=== PATIENT | female | born 1950 | race Hispanic/Latino ===

== ENCOUNTER → 2018-02-11 | Outpatient (CLI) | payer MEDICARE | END | disposition home or self-care (01) | LOC: SHCH 10:13 | PROVIDERS: ATTEND Internal Medicine Cardiovascular Disease | DX: I51.7 Cardiomegaly (principal); I35.1 Nonrheumatic aortic (valve) insufficiency; I10 Essential (primary) hypertension; I45.10 Unspecified right bundle-branch block | CPT/HCPCS: 93306; 93975 ==

== ENCOUNTER 2018-10-19 08:24 | Observation (INO) | payer MEDICARE ==
[~2018-10-19] VITALS: Ht 165.1 cm; Wt 65.3 kg
[~2018-10-19 08:24] MED LIST: ACET-2123 PO; AMLO10TA6 PO; ASPI-555 PO; CARV6.25 PO; FERS325 PO; FLUT16H NASAL; FOLI1CAP2 PO; GLUC1CAP14 PO; IPRA4AER IH; LORA-705 PO; MULT-1250 PO; ROSU10TA27 PO; SITA25TA5 PO; SODI650T PO; TORS20TA4 PO; [UNRECOGNIZED DRUG - CODE] IJ
[2018-10-19] MEDS ORDERED: HYDRALAZINE HCL 20 MG/ML VIAL ONE (08:42)
[2018-10-19] MEDS ORDERED: NIFEDIPINE ER 30 MG TAB PO ONE (08:42)
[2018-10-19 08:48] LABS: BASOPHILS % (AUTO) 0.8 % (0.0-5.0); EOSINOPHILS % (AUTO) 2.9 % (0.0-8.0); HEMATOCRIT 32.8 % (36-48); LYMPHOCYTES % (AUTO) 15.2 % (21.0-51.0); MEAN CORPUSCULAR HEMOGLOBIN 28.9 pg (27.0-33.0); MEAN CORPUSCULAR HGB CONC 32.6 g/dL (32.0-36.0); MEAN CORPUSCULAR VOLUME 88.9 fL (79-99); MONOCYTES % (AUTO) 4.1 % (3.0-13.0); NUCLEATED RED BLOOD CELLS 0.1 % (0.0-0.19); PLATELET COUNT (AUTO) 146 K/uL (130-400); RED BLOOD CELL COUNT(AUTO) 3.69 MIL/uL (4.00-5.50); RED CELL DISTRIBUTION WIDTH 16.9 % (11.0-15.5); WHITE BLOOD COUNT (AUTO) 8.3 K/uL (4.8-10.8)
[2018-10-19 08:58] LABS: CREATININE 6.6 mg/dL (0.5-1.5); POTASSIUM 4.1 mmol/L (3.5-5.1)
[2018-10-19 09:05] LABS: BILIRUBIN,TOTAL 0.4 mg/dL (0.2-1.0); INR 0.95 (0.85-1.15); PARTIAL THROMBOPLASTIN TIME 25.8 SEC (26.3-35.5); TOTAL PROTEIN, SERUM 7.9 g/dL (6.0-8.3)
[2018-10-19] MEDS ORDERED: LORAZEPAM 2 MG/ML 1 ML VIAL ONE (09:20)
[2018-10-19 11:24] VITALS: BP 194/75
[2018-10-19] MEDS ORDERED: LOSA100T20 PO (11:44)
[2018-10-19] MEDS ORDERED: CALC667C10 PO (11:44)
[2018-10-19] MEDS ORDERED: LOSA25TA16 PO (14:08)
[2018-10-19] MEDS ORDERED: HYDRALAZINE HCL 20 MG/ML VIAL IV PRN (14:30)
[2018-10-19] MEDS: IPRATROPIUM/ALBUTEROL SULFATE 3 ML SOLUTION IH SCH ×2 (15:12→21:23)
[2018-10-19] MEDS ORDERED: ALBUMIN (HUMAN) 25% 100 ML IV PRN (15:15)
[2018-10-19] MEDS ORDERED: HEPARIN SODIUM 5000UNIT/ML 1ML VIAL IJ PRN (15:15)
[2018-10-19] MEDS ORDERED: 0.9% SODIUM CHLORIDE 250 ML IV BAG IV PRN (15:15)
[2018-10-19 16:00] VITALS: BP 129/70
[2018-10-19] MEDS: INSULIN HUMULIN R 100 UNIT/ML 3ML SQ SCH ×2 (16:30→20:15)
[2018-10-19] MEDS: CALCIUM ACETATE 667 MG CAPSULE PO SCH (17:28)
[2018-10-19] MEDS: SODIUM CHLORIDE 0.9% 1000ML 1,000 ML IV PRN (17:32)
[2018-10-19 19:32] VITALS: BP 130/57
[2018-10-19] MEDS: CARVEDILOL 6.25 MG TABLET PO SCH (20:06)
[2018-10-19 23:49] VITALS: BP 141/60
[2018-10-20 03:46] LABS: HEMATOCRIT 27.7 % (36-48); MEAN CORPUSCULAR HEMOGLOBIN 29.2 pg (27.0-33.0); MEAN CORPUSCULAR HGB CONC 33.2 g/dL (32.0-36.0); PLATELET COUNT (AUTO) 166 K/uL (130-400); RED BLOOD CELL COUNT(AUTO) 3.14 MIL/uL (4.00-5.50); RED CELL DISTRIBUTION WIDTH 17.2 % (11.0-15.5); WHITE BLOOD COUNT (AUTO) 7.2 K/uL (4.8-10.8)
[2018-10-20 03:52] VITALS: BP 122/61
[2018-10-20 04:01] LABS: CREATININE 4.6 mg/dL (0.5-1.5); MAGNESIUM 1.9 mg/dL (1.80-2.40); PHOSPHORUS 4.4 mg/dL (2.5-4.9); URIC ACID 3.5 mg/dL (2.6-7.2)
[2018-10-20] MEDS: IPRATROPIUM/ALBUTEROL SULFATE 3 ML SOLUTION IH SCH ×2 (05:57→22:09)
[2018-10-20] MEDS: SODIUM CHLORIDE 0.9% 1000ML 1,000 ML IV PRN (06:46)
[2018-10-20] MEDS: INSULIN HUMULIN R 100 UNIT/ML 3ML SQ SCH ×4 (06:47→20:47)
[2018-10-20 07:00] VITALS: BP 167/71
[2018-10-20] MEDS: CALCIUM ACETATE 667 MG CAPSULE PO SCH ×3 (07:30→17:58)
[2018-10-20] MEDS: LINAGLIPTIN 5 MG TABLET PO SCH (08:53)
[2018-10-20] MEDS: FOLIC ACID/VITAMIN B COMP W-C 1 MG CAPSULE PO SCH (08:53)
[2018-10-20] MEDS: ASPIRIN 81MG TAB.CHEW PO SCH (08:54)
[2018-10-20] MEDS: AMLODIPINE BESYLATE 5 MG TAB PO SCH (08:54)
[2018-10-20] MEDS: CARVEDILOL 6.25 MG TABLET PO SCH ×2 (08:54→20:25)
[2018-10-20 11:00] VITALS: BP 148/58
[2018-10-20 16:00] VITALS: BP 149/64
[2018-10-20 18:59] VITALS: BP 151/69
[2018-10-20] MEDS ORDERED: LOSARTAN 50 MG TABLET PO SCH (21:00)
[2018-10-20 23:44] VITALS: BP 125/54
[2018-10-21 03:48] VITALS: BP 152/61
[2018-10-21 04:03] LABS: HEMATOCRIT 29.1 % (36-48); MEAN CORPUSCULAR HEMOGLOBIN 28.6 pg (27.0-33.0); MEAN CORPUSCULAR HGB CONC 32.4 g/dL (32.0-36.0); MEAN CORPUSCULAR VOLUME 88.3 fL (79-99); PLATELET COUNT (AUTO) 156 K/uL (130-400); RED BLOOD CELL COUNT(AUTO) 3.29 MIL/uL (4.00-5.50); RED CELL DISTRIBUTION WIDTH 15.8 % (11.0-15.5); WHITE BLOOD COUNT (AUTO) 7.7 K/uL (4.8-10.8)
[2018-10-21 04:11] LABS: CREATININE 6.5 mg/dL (0.5-1.5); POTASSIUM 4.6 mmol/L (3.5-5.1)
[2018-10-21] MEDS: IPRATROPIUM/ALBUTEROL SULFATE 3 ML SOLUTION IH SCH (06:10)
[2018-10-21] MEDS: INSULIN HUMULIN R 100 UNIT/ML 3ML SQ SCH ×2 (06:12→11:30)
[2018-10-21 07:40] VITALS: BP 153/62
[2018-10-21] MEDS: FOLIC ACID/VITAMIN B COMP W-C 1 MG CAPSULE PO SCH (08:42)
[2018-10-21] MEDS: CALCIUM ACETATE 667 MG CAPSULE PO SCH ×2 (08:43→12:53)
[2018-10-21] MEDS: CARVEDILOL 6.25 MG TABLET PO SCH (08:43)
[2018-10-21] MEDS: AMLODIPINE BESYLATE 5 MG TAB PO SCH (08:43)
[2018-10-21] MEDS: LINAGLIPTIN 5 MG TABLET PO SCH (08:43)
[2018-10-21] MEDS: ASPIRIN 81MG TAB.CHEW PO SCH (08:43)
[2018-10-21 11:47] VITALS: BP 157/58
[2018-10-21 16:48] VITALS: BP 144/67
== END 2018-10-21 18:54 | disposition home or self-care (01) ==
LOC: EDH 08:24 → EDHIP 09:50 → 2DH 10:53
PROVIDERS: ADMIT Internal Medicine; ATTEND Internal Medicine
DX: I12.0 Hypertensive chronic kidney disease with stage 5 chronic kidney disease or end stage renal disease (principal); N18.6 End stage renal disease; E11.22 Type 2 diabetes mellitus with diabetic chronic kidney disease; J81.1 Chronic pulmonary edema; Z99.2 Dependence on renal dialysis; I16.1 Hypertensive emergency; J96.00 Acute respiratory failure, unspecified whether with hypoxia or hypercapnia; E11.51 Type 2 diabetes mellitus with diabetic peripheral angiopathy without gangrene; D64.9 Anemia, unspecified; E87.70 Fluid overload, unspecified; I25.10 Atherosclerotic heart disease of native coronary artery without angina pectoris; M19.90 Unspecified osteoarthritis, unspecified site; Z91.19 Patient's noncompliance with other medical treatment and regimen; Z96.659 Presence of unspecified artificial knee joint; Z88.5 Allergy status to narcotic agent
CPT/HCPCS: G0257 ×101; 36415; 71045; 80048; 80053; 82550; 82948; 83735; 83880; 84100; 84484; 84550; 85025; 85027; 85610; 85730; 90935; 93005; 93306; 94640; 94660; 96372; 99291; G0378; J0360; J1644; J1815; J2060; J7030

== ENCOUNTER → 2018-12-16 | Outpatient (CLI) | payer MEDICARE ==
[~2018-12-16] MED LIST changes: -ACET-2123 PO; -AMLO10TA6 PO; +CALC667C10 PO; -FERS325 PO; -FLUT16H NASAL; -GLUC1CAP14 PO; -LORA-705 PO; +LOSA100T58 PO; -MULT-1250 PO; -ROSU10TA27 PO; -SODI650T PO; -TORS20TA4 PO; -[UNRECOGNIZED DRUG - CODE] IJ
== END | disposition home or self-care (01) ==
LOC: SHCH 12:52
PROVIDERS: ATTEND Internal Medicine Cardiovascular Disease
DX: I65.23 Occlusion and stenosis of bilateral carotid arteries (principal)
CPT/HCPCS: 93880

== ENCOUNTER → 2018-12-20 | Outpatient (CLI) | payer MEDICARE | END | disposition home or self-care (01) | LOC: SHCH 13:00 | PROVIDERS: ATTEND Internal Medicine Cardiovascular Disease | DX: I08.3 Combined rheumatic disorders of mitral, aortic and tricuspid valves (principal); J90 Pleural effusion, not elsewhere classified | CPT/HCPCS: 93306 ==

== ENCOUNTER → 2018-12-23 | Outpatient (CLI) | payer MEDICARE ==
[~2018-12-23] VITALS: Ht 162.6 cm; Wt 64.0 kg
[~2018-12-23] MED LIST changes: +REGADENOSON 0.4 MG/5 ML PF SYG IVP SCH
== END | disposition home or self-care (01) ==
LOC: SHCH 07:37
PROVIDERS: ATTEND Internal Medicine Cardiovascular Disease
DX: I25.9 Chronic ischemic heart disease, unspecified (principal); I10 Essential (primary) hypertension
CPT/HCPCS: 78452; 93017; 96374; A9500 ×2; J2785

== ENCOUNTER 2019-01-24 05:42 | Observation (INO) | payer MEDICARE ==
[2019-01-22 08:39] VITALS: BP 160/80
[2019-01-22 08:53] LABS: BASOPHILS % (AUTO) 0.7 % (0.0-5.0); EOSINOPHILS % (AUTO) 2.6 % (0.0-8.0); HEMATOCRIT 35.9 % (36-48); LYMPHOCYTES % (AUTO) 13.1 % (21.0-51.0); MEAN CORPUSCULAR HEMOGLOBIN 29.6 pg (27.0-33.0); MEAN CORPUSCULAR VOLUME 92.5 fL (79-99); MONOCYTES % (AUTO) 6.9 % (3.0-13.0); NEUTROPHILS % (AUTO) 76.7 % (40.0-77.0); NUCLEATED RED BLOOD CELLS 0.1 % (0.0-0.19); PLATELET COUNT (AUTO) 162 K/uL (130-400); RED BLOOD CELL COUNT(AUTO) 3.88 MIL/uL (4.00-5.50); RED CELL DISTRIBUTION WIDTH 19.9 % (11.0-15.5); WHITE BLOOD COUNT (AUTO) 7.9 K/uL (4.8-10.8)
[2019-01-22 08:56] LABS: BILIRUBIN,URINE Negative (NEGATIVE); COLOR,URINE Yellow (YELLOW); GLUCOSE, URINE (UA) 500 mg/dL (NEGATIVE); KETONES,URINE Negative (NEGATIVE); LEUKOCYTE ESTERASE ,URINE Trace (NEGATIVE); NITRATE,URINE Negative (NEGATIVE); OCCULT BLOOD,URINE Small (NEGATIVE); PH,URINE >=9.0 (5.0-8.0); PROTEIN,URINE >=1000 (NEGATIVE); UROBILINOGEN,URINE 0.2 mg/dL (0.2-1.0)
[2019-01-22 08:59] LABS: CREATININE 6.7 mg/dL (0.5-1.5); POTASSIUM 4.4 mmol/L (3.5-5.1)
[2019-01-22 09:05] LABS: INR 1.03 (0.85-1.15); PARTIAL THROMBOPLASTIN TIME 26.1 SEC (26.3-35.5); PROTHROMBIN TIME 10.8 SEC (9.6-11.6)
[2019-01-22 09:08] LABS: APPEARANCE,URINE CLEAR (CLEAR)
[2019-01-22 09:09] LABS: BACTERIA,URINE Rare /HPF (None Seen); RBC,URINE 0-1 /HPF (0-1); SQUAMOUS EPITHELIAL CELL,UR Rare /HPF (0-2); WBC,URINE 0-1 /HPF (0-1)
--- NOTE | 2019-01-23 11:34 | NUR ---
NOTE REPORTED UA AND CHEST XRAY, TO NATAN DRAPER , NO FURTHER ORDERS GIVEN.
[~2019-01-24] VITALS: Ht 162.6 cm; Wt 64.1 kg
[2019-01-24] VITALS (28 sets, daily range): BP systolic 124–174; BP diastolic 48–83
[~2019-01-24 05:42] MED LIST changes: +AMLO10TA7 PO; +CHOL100040 PO; -IPRA4AER IH; -REGADENOSON 0.4 MG/5 ML PF SYG IVP SCH; +SODIUM CHLORIDE 0.9% 500ML 500 ML IV SCH; +vitamin e PO
[2019-01-24] MEDS ORDERED: IOHEXOL-350 50ML VIAL IV ONE (07:19)
[2019-01-24] MEDS ORDERED: SODIUM BICARB 50MEQ 50ML VIAL ONE (07:19)
[2019-01-24] MEDS ORDERED: HEPARIN SODIUM 1000UNIT/ML 10ML VIAL ONE (07:19)
[2019-01-24] MEDS ORDERED: LIDOCAINE HCL 2% 20ML ONE (07:19)
[2019-01-24] MEDS ORDERED: IOHEXOL 350 MG/ML 100ML INFUS..BTL IV ONE (07:19)
[2019-01-24] MEDS ORDERED: NITROGLYCERIN 5 MG/ML 10 ML VIAL IV ONE (07:19)
[2019-01-24] MEDS ORDERED: SODIUM CHLORIDE 0.9% 1000ML 1,000 ML IV ONE (07:24)
[2019-01-24] MEDS ORDERED: MIDAZOLAM HCL 1 MG/ML 2ML VIAL ONE (07:38)
[2019-01-24] MEDS ORDERED: MEPERIDINE-PF 25 MG/ML SYG ONE (07:38)
[2019-01-24] MEDS ORDERED: IPRA4AER IH (07:48)
[2019-01-24] MEDS ORDERED: HYDRALAZINE HCL 20 MG/ML VIAL ONE (07:50)
[2019-01-24] MEDS ORDERED: GLUCAGON 1MG KIT 1 MG ML IM PRN (08:15)
[2019-01-24] MEDS ORDERED: DEXTROSE 50%-WATER 50 ML DISP.SYRIN IV PRN (08:15)
[2019-01-24 09:41] LABS: CHOLESTEROL 100 mg/dL (<200); HDL CHOLESTEROL 45 mg/dL (35-85); LDL DIRECT 49 mg/dL (0-99); TRIGLYCERIDES 59 mg/dL (30-200)
[2019-01-24] MEDS ORDERED: NITROGLYCERIN 0.4 MG SL TAB SL ONE (10:35)
[2019-01-24] MEDS: INSULIN HUMULIN R 100 UNIT/ML 3ML SQ SCH ×3 (11:30→21:00)
[2019-01-24 11:40] LABS: CREATINE KINASE, TOTAL 104 U/L (21-232); MYOGLOBIN 265 ng/mL (10-92); TROPONIN I < 0.04 ng/mL (0.00-0.06)
[2019-01-24] MEDS ORDERED: NITROGLYCERIN 0.4 MG SL TAB SL PRN (15:00)
--- NOTE | 2019-01-24 15:05 | NUR ---
Patient was C/o Chest pain, sternal, 3/, does not radiate. Patient states it is not as bad as earlier today. SL NTG given at 1500 and patient's pain was relieved within 5 minutes. Patient's HOB is up 20degrees, no sign of bleeding to right femoral site. Will continue to monitor patient's condition.
[2019-01-24] MEDS ORDERED: PNEUMOCOCCAL VACCINE POLYVALENT 0.5 ML/VIAL [PPV] IM SCH (16:00)
--- NOTE | 2019-01-24 16:05 | NUR ---
Dr Collins updated by phone, ordered to let patient have dinner tray.
--- NOTE | 2019-01-25 01:38 | NUR ---
PT HAS NOT OFFERED ANY COMPLAINTS OF CHEST PAIN, HAS BEEN SLEEPING.
[2019-01-25 03:46] LABS: BASOPHILS % (AUTO) 0.7 % (0.0-5.0); EOSINOPHILS % (AUTO) 3.3 % (0.0-8.0); HEMATOCRIT 35.4 % (36-48); MEAN CORPUSCULAR HEMOGLOBIN 29.5 pg (27.0-33.0); MEAN CORPUSCULAR HGB CONC 32.4 g/dL (32.0-36.0); MEAN CORPUSCULAR VOLUME 91.2 fL (79-99); NUCLEATED RED BLOOD CELLS 0.1 % (0.0-0.19); PLATELET COUNT (AUTO) 160 K/uL (130-400); RED BLOOD CELL COUNT(AUTO) 3.89 MIL/uL (4.00-5.50); RED CELL DISTRIBUTION WIDTH 19.4 % (11.0-15.5); WHITE BLOOD COUNT (AUTO) 7.4 K/uL (4.8-10.8)
[2019-01-25 03:58] VITALS: BP 148/71
[2019-01-25 04:07] LABS: ALANINE AMINOTRANSFERASE 18 U/L (12-78); ALBUMIN 2.9 g/dL (3.5-5.0); ASPARTATE AMINOTRANSFERASE 17 U/L (10-37); BILIRUBIN,TOTAL 0.4 mg/dL (0.2-1.0); CARBON DIOXIDE 26 mmol/L (21-32); CHLORIDE 99 mmol/L (101-111); CREATINE KINASE, TOTAL 61 U/L (21-232); CREATININE 7.5 mg/dL (0.5-1.5); GLOMERULAR FILTR. RATE CALC 6 mL/min (>60); GLUCOSE,RANDOM 97 mg/dL (70-105); MYOGLOBIN 211 ng/mL (10-92); POTASSIUM 4.3 mmol/L (3.5-5.1); SODIUM SERUM 138 mmol/L (136-145); TOTAL PROTEIN, SERUM 7.1 g/dL (6.0-8.3); TROPONIN I < 0.04 ng/mL (0.00-0.06); UREA NITROGEN, BLOOD 65 mg/dL (7-18)
--- NOTE | 2019-01-25 05:28 | NUR ---
DIALYSIS STAFF HAVE BEEN ADVISED OF PT'S NEED FOR DIALYSIS ON SUNDAY DUE TO PT'S DIALYSIS DAYS ARE SUNDAY, SUNDAY AND SUNDAY.
[2019-01-25] MEDS: INSULIN HUMULIN R 100 UNIT/ML 3ML SQ SCH ×4 (05:29→21:00)
--- NOTE | 2019-01-25 06:00 | NUR ---
PT WAS ABLE TO AMBULATE TO BATHROOM WITHOUT ANY PROBLEMS. NO FURTHER COMPLAINTS OF CHEST PAIN. SLEEP MOST OF THE NIGHT.
[2019-01-25 07:20] VITALS: BP 171/62
[2019-01-25] MEDS ORDERED: PNEUMOCOCCAL VACCINE POLYVALENT 0.5 ML/VIAL [PPV] ONE (08:29)
[2019-01-25] MEDS ORDERED: ASPIRIN 81 MG EC TAB PO SCH (09:00)
[2019-01-25] MEDS ORDERED: ISOSORBIDE MONO 30MG TAB SR PO SCH (09:00)
--- NOTE | 2019-01-25 10:30 | NUR ---
Dr Collins came in to see patient. Discussed her situation and options with patient and Brother. Patient verbalized wanting to only do surgery as a last resort, Dr Collins agreed. Dr Collins states no need for patient to follow up in clinic at this time.
[2019-01-25 11:06] VITALS: BP 176/63
[2019-01-25 16:30] VITALS: BP 176/66
[2019-01-25] MEDS ORDERED: SODIUM CHLORIDE 0.9% 1000ML 1,000 ML IV PRN (18:15)
[2019-01-25] MEDS ORDERED: NITROGLYCERIN 0.4 MG SL TAB SL PRN (18:15)
[2019-01-25] MEDS ORDERED: HEPARIN SODIUM 5000UNIT/ML 1ML VIAL IJ PRN ×2 (18:15)
[2019-01-25] MEDS ORDERED: ACETAMINOPHEN 325 MG TAB PO PRN (18:15)
[2019-01-25] MEDS ORDERED: 0.9% SODIUM CHLORIDE 1000 ML IV BAG IV PRN (18:15)
[2019-01-25] MEDS ORDERED: LIDOCAINE HCL-MPF 1% 2ML VIAL IJ PRN (18:15)
[2019-01-25 19:36] VITALS: BP 184/74
--- NOTE | 2019-01-25 20:00 | NUR ---
ASSESSMENT NOTE AAOX3 SITTING UP IN BED BREATHING REGULAR AND UNLABORED ON ROOM AIR. ASSESSMENT COMPLETED. DENIES PAIN. DENIES CHEST PAIN. PLAN OF CARE DISCUSSED WITH PATIENT. PATIENT DIALYSIS IN PROGRESS. REINFORCED SAFETY INSTRUCTION. PENDING DISCHARGE POST HEMODIALYSIS. NO ACUTE SIGNS OR SYMPTOMS OF DISTRESS NOTED. CALL LIGHT IN REACH
[2019-01-25] MEDS ORDERED: LOSARTAN 100 MG TABLET PO SCH (21:00)
[2019-01-25] MEDS ORDERED: AMLODIPINE BESYLATE 5 MG TAB PO SCH (21:00)
[2019-01-25] MEDS ORDERED: ATORVASTATIN CALCIUM 40 MG TABLET PO SCH (21:00)
--- NOTE | 2019-01-25 22:30 | NUR ---
DISCHARGE INSTRUCTION DISCHARGE INFORMATION REVIEWED WITH PATIENT. EDUCATED ON HOME CARE, FOLLOW UP INSTRUCTION, AND NEW MEDICATIONS USING TEACH BACK. REVIEWED FOLLOW UP APPOINTMENT DATES WITH PATIENT.
--- NOTE | 2019-01-25 23:00 | NUR ---
DISCHARGE PATIENT DRESSED AND BELONGINGS GATHERED. PATIENT HAD NO ADDITIONAL QUESTIONS. DISCHARGE PACKET WITH PATIENT. VITAL SIGNS OBTAINED. IV REMOVED AND PATIENT TRANSFERRED TO PRIVATE VEHICLE VIA WHEELCHAIR. DENIES CHEST PAIN. NO ACUTE SIGNS OR SYMPTOMS OF DISTRESS NOTED.
== END 2019-01-25 22:55 | disposition home or self-care (01) ==
LOC: DAH 05:42 → DAHIP 05:43 → 2BH 12:06
PROVIDERS: ADMIT Internal Medicine Critical Care Medicine; ATTEND Internal Medicine Critical Care Medicine
DX: I25.119 Atherosclerotic heart disease of native coronary artery with unspecified angina pectoris (principal); I12.0 Hypertensive chronic kidney disease with stage 5 chronic kidney disease or end stage renal disease; N18.6 End stage renal disease; D64.9 Anemia, unspecified; E11.21 Type 2 diabetes mellitus with diabetic nephropathy; E11.22 Type 2 diabetes mellitus with diabetic chronic kidney disease; E11.51 Type 2 diabetes mellitus with diabetic peripheral angiopathy without gangrene; E78.5 Hyperlipidemia, unspecified; G89.29 Other chronic pain; I42.9 Cardiomyopathy, unspecified; I45.2 Bifascicular block; K21.9 Gastro-esophageal reflux disease without esophagitis; M19.90 Unspecified osteoarthritis, unspecified site; Z95.1 Presence of aortocoronary bypass graft; Z99.2 Dependence on renal dialysis; Z79.899 Other long term (current) drug therapy; Z23 Encounter for immunization
CPT/HCPCS: 36415 ×3; 71045; 80048; 80053; 80061; 81001; 82550 ×2; 82948 ×8; 83874 ×2; 84484 ×2; 85025 ×2; 85610; 85730; 90732; 93005 ×2; 93458; A4606; C1760 ×2; C1894; G0009; G0378 ×41; J0360; J1644 ×2; J2175; J2250; J3490 ×3; J7030 ×2; Q9965; Q9967 ×2; 90935; 99156; 99157; G0257

== ENCOUNTER 2019-09-29 04:15 | Inpatient (IN) | payer MEDICARE ==
[~2019-09-29] VITALS: Ht 162.6 cm; Wt 68.4 kg
[~2019-09-29 04:15] MED LIST changes: -CARV6.25 PO; +IPRA4AER IH; -SODIUM CHLORIDE 0.9% 500ML 500 ML IV SCH
[2019-09-29] MEDS ORDERED: NITROGLYCERIN 1GM/1 INCH PACKET TD ONE (04:46)
[2019-09-29] MEDS ORDERED: IPRATROPIUM/ALBUTEROL SULFATE 3 ML SOLUTION IH ONE ×2 (04:48→11:13)
[2019-09-29] MEDS ORDERED: FUROSEMIDE 10 MG/ML 4ML VIAL ONE (04:49)
[2019-09-29] MEDS ORDERED: FUROSEMIDE 10 MG/ML 2ML VIAL ONE (04:49)
[2019-09-29 04:50] LABS: BASOPHILS % (AUTO) 0.9 % (0.0-5.0); EOSINOPHILS % (AUTO) 3.3 % (0.0-8.0); HEMATOCRIT 37.2 % (36-48); LYMPHOCYTES % (AUTO) 10.4 % (21.0-51.0); MEAN CORPUSCULAR HEMOGLOBIN 30.9 pg (27.0-33.0); MEAN CORPUSCULAR HGB CONC 32.9 g/dL (32.0-36.0); MEAN CORPUSCULAR VOLUME 93.9 fL (79-99); MONOCYTES % (AUTO) 4.2 % (3.0-13.0); NEUTROPHILS % (AUTO) 81.2 % (40.0-77.0); NUCLEATED RED BLOOD CELLS 0.1 % (0.0-0.19); RED BLOOD CELL COUNT(AUTO) 3.96 MIL/uL (4.00-5.50); RED CELL DISTRIBUTION WIDTH 18.5 % (11.0-15.5); WHITE BLOOD COUNT (AUTO) 8.6 K/uL (4.8-10.8)
[2019-09-29 04:54] LABS: ABG BASE EXCESS -4.1 mmol/L (-2.0-3.0); ABG HCO3 20.6 mmol/L (21.0-28.0); ABG OXYGEN SATURATION 62.1 % (95.0-99.0); ABG PCO2 37 mmHg (32-45)
[2019-09-29 04:58] LABS: CREATININE 7.7 mg/dL (0.5-1.5); POTASSIUM 5.2 mmol/L (3.5-5.1)
[2019-09-29 04:59] LABS: INR 1.02 (0.85-1.15); PARTIAL THROMBOPLASTIN TIME 26.4 SEC (26.3-35.5); PROTHROMBIN TIME 10.7 SEC (9.6-11.6)
[2019-09-29 05:03] LABS: ALBUMIN 3.9 g/dL (3.5-5.0); BILIRUBIN,TOTAL 0.8 mg/dL (0.2-1.0)
[2019-09-29 05:09] LABS: B-TYPE NATRIURETIC PEPTIDE 1980 pg/mL (0-100)
[2019-09-29 05:16] LABS: PLATELET COUNT (AUTO) 168 K/uL (130-400)
[2019-09-29] MEDS ORDERED: METOPROLOL TARTRATE 1 MG/ML 5ML VIAL IV ONE (05:41)
[2019-09-29] MEDS ORDERED: NITROGLYCERIN 50 MG/D5% WATER 250 BOT IV PRN (06:30)
[2019-09-29] MEDS ORDERED: ONDANSETRON HCL 4 MG/2 ML VIAL IVP PRN (06:30)
--- NOTE | 2019-09-29 07:00 | NUR ---
SMOKED 1PK/WEEK Addendum: 09/29/19 at 0818 by HOMAR ZUÑIGA RT Amended: Links added.
[2019-09-29] MEDS ORDERED: SODIUM CHLORIDE 0.9% 1000ML 1,000 ML IV PRN (08:30)
[2019-09-29] MEDS ORDERED: 0.9% SODIUM CHLORIDE 1000 ML IV BAG IV PRN (08:30)
[2019-09-29] MEDS ORDERED: HEPARIN SODIUM 5000UNIT/ML 1ML VIAL IJ PRN ×2 (08:30)
[2019-09-29] MEDS ORDERED: ASPIRIN 81MG TAB.CHEW PO SCH (09:00)
[2019-09-29] MEDS: FAMOTIDINE/PF 20 MG/2 ML VIAL IV SCH (09:00)
[2019-09-29 09:13] LABS: CREATINE KINASE, TOTAL 120 U/L (21-232); MYOGLOBIN 245 ng/mL (10-92); TROPONIN I < 0.04 ng/mL (0.00-0.06)
[2019-09-29] MEDS ORDERED: HEPARIN SODIUM 5000UNIT/ML 1ML VIAL ONE ×2 (10:22→10:23)
[2019-09-29] MEDS: IPRATROPIUM/ALBUTEROL SULFATE 3 ML SOLUTION IH PRN (11:17)
[2019-09-29] MEDS ORDERED: INSULIN R NPO SSI SQ SCH (12:00)
--- NOTE | 2019-09-29 12:20 | NUR ---
ARRIVAL TO FLOOR PT IS AAOX3 DENIES CP DENIES SOB DENIES NV NO COMPLAINTS ARRIVED WITH ORDERS, CALL LIGHT WITHIN REACH.
[2019-09-29] MEDS ORDERED: BENZ-39 PO (12:29)
[2019-09-29] MEDS ORDERED: D3 PO (12:29)
[2019-09-29] MEDS ORDERED: CETI10TA57 PO (12:29)
[2019-09-29] MEDS ORDERED: ATOR40TA69 PO (12:29)
[2019-09-29] MEDS ORDERED: CARV12.511 PO (12:29)
[2019-09-29 12:30] VITALS: BP 188/76
[2019-09-29] MEDS ORDERED: IPRATROPIUM/ALBUTEROL SULFATE 3 ML SOLUTION IH PRN (14:00)
[2019-09-29] MEDS: BENZONATATE 100 MG CAPSULE PO SCH ×2 (14:15→19:39)
--- NOTE | 2019-09-29 14:22 | NUR ---
DR GLASER ROUNDED SAW PATIENT, REQUESTED RECORDS FROM [facility], REQUEST FORM SIGNED AND [facility]XED [facility]
[2019-09-29 15:39] VITALS: BP 171/74
[2019-09-29] MEDS: INSULIN HUMULIN R 100 UNIT/ML 3ML SQ SCH ×2 (16:11→21:00)
[2019-09-29] MEDS: ATORVASTATIN CALCIUM 40 MG TABLET PO SCH (19:40)
[2019-09-29] MEDS: LOSARTAN 100 MG TABLET PO SCH (19:40)
[2019-09-29] MEDS: CARVEDILOL 12.5 MG TABLET PO SCH (19:40)
[2019-09-29 20:07] VITALS: BP 189/76
--- NOTE | 2019-09-29 21:30 | NUR ---
PT IN BED, STATES NO CONCERNS AT THIS TIME. ABLE TO AMBULATE. DOES HAS GBW NOTED. DIALYSIS COMPLETED TODAY. PENDING DIALYSIS TOMORROW. PT AA03. PERRLA. MEDICATIONS TAKEN ADMINISTERED.
[2019-09-30 00:26] VITALS: BP 187/73
[2019-09-30 04:00] VITALS: BP 164/77
[2019-09-30 04:29] LABS: HEMATOCRIT 30.7 % (36-48); MEAN CORPUSCULAR HEMOGLOBIN 30.6 pg (27.0-33.0); MEAN CORPUSCULAR HGB CONC 32.9 g/dL (32.0-36.0); MEAN CORPUSCULAR VOLUME 92.8 fL (79-99); PLATELET COUNT (AUTO) 101 K/uL (130-400); RED BLOOD CELL COUNT(AUTO) 3.31 MIL/uL (4.00-5.50); RED CELL DISTRIBUTION WIDTH 18.5 % (11.0-15.5); WHITE BLOOD COUNT (AUTO) 6.7 K/uL (4.8-10.8)
[2019-09-30 05:06] LABS: CARBON DIOXIDE 30 mmol/L (21-32); CHLORIDE 100 mmol/L (101-111); CREATINE KINASE, TOTAL 94 U/L (21-232); CREATININE 6.4 mg/dL (0.5-1.5); GLOMERULAR FILTR. RATE CALC 7 mL/min (>60); GLUCOSE,RANDOM 119 mg/dL (70-105); PHOSPHORUS 6.8 mg/dL (2.5-4.9); POTASSIUM 4.5 mmol/L (3.5-5.1); SODIUM SERUM 139 mmol/L (136-145); TROPONIN I < 0.04 ng/mL (0.00-0.06); UREA NITROGEN, BLOOD 49 mg/dL (7-18)
[2019-09-30 05:34] LABS: MYOGLOBIN 314 ng/mL (10-92)
[2019-09-30] MEDS: INSULIN HUMULIN R 100 UNIT/ML 3ML SQ SCH ×4 (06:42→21:00)
[2019-09-30] MEDS: IPRATROPIUM/ALBUTEROL SULFATE 3 ML SOLUTION IH PRN ×2 (06:58→18:37)
[2019-09-30 07:30] VITALS: BP 178/95
[2019-09-30] MEDS: VITAMIN E 400 UNIT CAPSULE PO SCH (07:43)
[2019-09-30] MEDS: BENZONATATE 100 MG CAPSULE PO SCH ×3 (07:43→21:52)
[2019-09-30] MEDS: FAMOTIDINE/PF 20 MG/2 ML VIAL IV SCH (07:43)
[2019-09-30] MEDS: ASPIRIN 81 MG EC TAB PO SCH (07:43)
[2019-09-30] MEDS: LINAGLIPTIN 5 MG TABLET PO SCH (07:43)
[2019-09-30] MEDS: CARVEDILOL 12.5 MG TABLET PO SCH ×2 (07:44→21:52)
[2019-09-30] MEDS: FOLIC ACID/VITAMIN B COMP W-C 1 MG CAP/TAB PO SCH (07:44)
[2019-09-30] MEDS: AMLODIPINE BESYLATE 5 MG TAB PO SCH (07:44)
[2019-09-30] MEDS: CHOLECALCIFEROL 25 MG PO SCH (07:44)
--- NOTE | 2019-09-30 08:00 | NUR ---
ASSESSMENT PT IS AAOX3 DENIES CP DENIES SOB DENIES NV NO COMPLAINTS AT THIS TIME. SITTING UP IN CHAIR EATING BREAKFAST. CALL LIGHT WITHIN REACH. PENDING DIALYSIS TODAY, DIALYSIS NURSE AWARE.
[2019-09-30] MEDS ORDERED: CETIRIZINE HCL 5 MG TABLET PO PRN (09:00)
--- NOTE | 2019-09-30 13:30 | NUR ---
DIALYSIS AT BEDSIDE DEEPAK JACKSON AT BEDSIDE
--- NOTE | 2019-09-30 13:52 | NUR ---
HEPARIN VIALS X2 GIVEN TO DEEPAK YARDMASTER NURSE FOR DIALYSIS PACKING
[2019-09-30 14:10] LABS: HEPATITIS A ANTIBODY IGM Negative (Negative); HEPATITIS B CORE IGM Positive (Negative); HEPATITIS Bs ANTIGEN SCREEN P Negative (Negative)
[2019-09-30 15:31] VITALS: BP 161/80
--- NOTE | 2019-09-30 15:44 | NUR ---
DC PLAN VISITED WITH PATIENT. PATIENT LIVES WITH BROTHER. INDEPENDENT ABLE TO PERFORM ADL'S. PROVIDER 2 HRS, US RENAL TTS DRIVES SELF. FEELS SAFE TO RETURN HOME. Addendum: 09/30/19 at 1547 by TRINA NELSON RN CM Amended: Links added.
--- NOTE | 2019-09-30 18:15 | NUR ---
STATUS NO COMPLAINTS, SITTING UP IN CHAIR. DENIES PAIN. CALL LIGHT WITHIN REACH.
[2019-09-30 20:15] VITALS: BP 179/94
[2019-09-30] MEDS ORDERED: ACETAMINOPHEN 325 MG TAB ONE (21:40)
[2019-09-30] MEDS: LOSARTAN 100 MG TABLET PO SCH (21:52)
[2019-09-30] MEDS: ATORVASTATIN CALCIUM 40 MG TABLET PO SCH (21:52)
[2019-10-01] VITALS (7 sets, daily range): BP systolic 137–185; BP diastolic 45–78
[2019-10-01 04:18] LABS: HEMATOCRIT 31.3 % (36-48); MEAN CORPUSCULAR HEMOGLOBIN 30.6 pg (27.0-33.0); MEAN CORPUSCULAR HGB CONC 33.2 g/dL (32.0-36.0); MEAN CORPUSCULAR VOLUME 92.2 fL (79-99); PLATELET COUNT (AUTO) 97 K/uL (130-400); RED CELL DISTRIBUTION WIDTH 18.2 % (11.0-15.5); WHITE BLOOD COUNT (AUTO) 6.7 K/uL (4.8-10.8)
[2019-10-01 04:37] LABS: CREATININE 5.3 mg/dL (0.5-1.5)
[2019-10-01] MEDS: INSULIN HUMULIN R 100 UNIT/ML 3ML SQ SCH ×4 (05:57→21:00)
[2019-10-01] MEDS: IPRATROPIUM/ALBUTEROL SULFATE 3 ML SOLUTION IH PRN ×2 (06:38→18:25)
--- NOTE | 2019-10-01 07:30 | NUR ---
PT EATING MCDONALDSJESSICA RN INFORMED PT OF POOR NUTRITION CHOICES, PT DID NOT DRINK OJ. PT VERBALIZES UNDERSTANDING BUT WILL STILL EAT MCDONALDS BREAKFAST.
[2019-10-01] MEDS: VITAMIN E 400 UNIT CAPSULE PO SCH (08:09)
[2019-10-01] MEDS: BENZONATATE 100 MG CAPSULE PO SCH ×3 (08:09→20:54)
[2019-10-01] MEDS: FAMOTIDINE/PF 20 MG/2 ML VIAL IV SCH (08:09)
[2019-10-01] MEDS: AMLODIPINE BESYLATE 5 MG TAB PO SCH (08:10)
[2019-10-01] MEDS: CARVEDILOL 12.5 MG TABLET PO SCH ×2 (08:10→21:00)
[2019-10-01] MEDS: ASPIRIN 81 MG EC TAB PO SCH (08:11)
[2019-10-01] MEDS: LINAGLIPTIN 5 MG TABLET PO SCH (08:11)
[2019-10-01] MEDS: FOLIC ACID/VITAMIN B COMP W-C 1 MG CAP/TAB PO SCH (08:11)
[2019-10-01] MEDS: CHOLECALCIFEROL 25 MG PO SCH (08:38)
--- NOTE | 2019-10-01 08:45 | NUR ---
RIGHT ARM REDNESS PRESENT, WARMTH TO TOUCH, NO ITCHING OR DISCHARGE, DR GLASER AT BEDSIDE, NO ORDERS GIVEN JUST TO CONTINUE TO MONITOR, PT STATES SHE EXPERIENCES THE REDNESS AFTER DIALYSIS. NEED CLARIFICATION OF VITAMIN D3 HOME MEDICATION 25MG or 25 MCG, WILL RECONCILE MED AND NOTIFY PHYSICIAN, MED NOT GIVEN IN AM 11/06
--- NOTE | 2019-10-01 11:33 | NUR ---
BLOOD SUGAR [address] NO INSULIN COVERAGE NEEDED.
[2019-10-01] MEDS ORDERED: CHOL100018 PO (12:29)
[2019-10-01] MEDS: LOSARTAN 100 MG TABLET PO SCH (20:54)
[2019-10-01] MEDS: ATORVASTATIN CALCIUM 40 MG TABLET PO SCH (20:54)
[2019-10-02] MEDS: ACETAMINOPHEN 325 MG TAB PO PRN ×2 (03:06→18:32)
[2019-10-02 03:26] VITALS: BP 162/69
[2019-10-02 04:40] LABS: HEMATOCRIT 30.4 % (36-48); MEAN CORPUSCULAR HEMOGLOBIN 30.8 pg (27.0-33.0); MEAN CORPUSCULAR HGB CONC 33.5 g/dL (32.0-36.0); MEAN CORPUSCULAR VOLUME 91.9 fL (79-99); PLATELET COUNT (AUTO) 106 K/uL (130-400); RED BLOOD CELL COUNT(AUTO) 3.31 MIL/uL (4.00-5.50); RED CELL DISTRIBUTION WIDTH 18.1 % (11.0-15.5); WHITE BLOOD COUNT (AUTO) 6.6 K/uL (4.8-10.8)
[2019-10-02 04:57] LABS: CREATININE 7.7 mg/dL (0.5-1.5); PHOSPHORUS 9.1 mg/dL (2.5-4.9); POTASSIUM 4.3 mmol/L (3.5-5.1)
[2019-10-02] MEDS: INSULIN HUMULIN R 100 UNIT/ML 3ML SQ SCH ×4 (06:31→21:00)
[2019-10-02 07:00] VITALS: BP 144/70
[2019-10-02] MEDS: IPRATROPIUM/ALBUTEROL SULFATE 3 ML SOLUTION IH PRN ×2 (07:22→19:14)
[2019-10-02] MEDS: VITAMIN E 400 UNIT CAPSULE PO SCH (09:00)
[2019-10-02] MEDS: FAMOTIDINE/PF 20 MG/2 ML VIAL IV SCH (09:00)
[2019-10-02] MEDS: ASPIRIN 81 MG EC TAB PO SCH (09:00)
[2019-10-02] MEDS: LINAGLIPTIN 5 MG TABLET PO SCH (09:00)
[2019-10-02] MEDS: CHOLECALCIFEROL 25 MG PO SCH (09:00)
[2019-10-02] MEDS: FOLIC ACID/VITAMIN B COMP W-C 1 MG CAP/TAB PO SCH (09:00)
[2019-10-02] MEDS: BENZONATATE 100 MG CAPSULE PO SCH ×3 (09:00→22:18)
[2019-10-02] MEDS: CARVEDILOL 12.5 MG TABLET PO SCH ×2 (09:00→22:16)
--- NOTE | 2019-10-02 09:00 | NUR ---
PATIENT WILL BE RECEIVING DIALYSIS TODAY, HOLDING MORNING MEDICATIONS TIL AFTER DIALYSIS.
[2019-10-02 11:00] VITALS: BP 151/66
[2019-10-02 15:00] VITALS: BP 158/65
[2019-10-02] MEDS: AMLODIPINE BESYLATE 5 MG TAB PO SCH (17:25)
[2019-10-02 19:59] VITALS: BP 162/74
[2019-10-02] MEDS: ATORVASTATIN CALCIUM 40 MG TABLET PO SCH (22:15)
[2019-10-02] MEDS: LOSARTAN 100 MG TABLET PO SCH (22:15)
[2019-10-03 00:08] VITALS: BP 135/46
[2019-10-03 04:10] VITALS: BP 147/69
[2019-10-03] MEDS: IPRATROPIUM/ALBUTEROL SULFATE 3 ML SOLUTION IH PRN (05:57)
[2019-10-03] MEDS: INSULIN HUMULIN R 100 UNIT/ML 3ML SQ SCH ×2 (06:07→11:30)
[2019-10-03 07:44] VITALS: BP 158/83
[2019-10-03] MEDS: CHOLECALCIFEROL 25 MG PO SCH (09:00)
[2019-10-03] MEDS: ASPIRIN 81 MG EC TAB PO SCH (09:29)
[2019-10-03] MEDS: VITAMIN E 400 UNIT CAPSULE PO SCH (09:29)
[2019-10-03] MEDS: CARVEDILOL 12.5 MG TABLET PO SCH (09:30)
[2019-10-03] MEDS: BENZONATATE 100 MG CAPSULE PO SCH ×2 (09:30→14:59)
[2019-10-03] MEDS: LINAGLIPTIN 5 MG TABLET PO SCH (09:30)
[2019-10-03] MEDS: AMLODIPINE BESYLATE 5 MG TAB PO SCH (09:30)
[2019-10-03] MEDS: FOLIC ACID/VITAMIN B COMP W-C 1 MG CAP/TAB PO SCH (09:30)
[2019-10-03] MEDS: FAMOTIDINE/PF 20 MG/2 ML VIAL IV SCH (09:30)
[2019-10-03 12:05] VITALS: BP 157/68
[2019-10-03] MEDS: ACETAMINOPHEN 325 MG TAB PO PRN (15:05)
[2019-10-03 16:00] VITALS: BP 149/72
--- NOTE | 2019-10-03 16:25 | NUR ---
pt states she received flu shot at her pcp clinic
== END 2019-10-03 18:00 | disposition home or self-care (01) | DRG 291 ==
LOC: EDH 04:15 → EDHIP 05:44 → 2AH 11:28
PROVIDERS: ADMIT Internal Medicine Nephrology; ATTEND Internal Medicine Nephrology
PROC: 5A1D70Z Performance of Urinary Filtration, Intermittent, Less than 6 Hours Per Day (ICD-10-PCS; principal; 2019-09-29)
PROC: 5A1D70Z Performance of Urinary Filtration, Intermittent, Less than 6 Hours Per Day (ICD-10-PCS; 2019-09-30)
PROC: 5A1D70Z Performance of Urinary Filtration, Intermittent, Less than 6 Hours Per Day (ICD-10-PCS; 2019-10-02)
DX: I13.2 Hypertensive heart and chronic kidney disease with heart failure and with stage 5 chronic kidney disease, or end stage renal disease (principal); J96.01 Acute respiratory failure with hypoxia; N18.6 End stage renal disease; I50.21 Acute systolic (congestive) heart failure; J90 Pleural effusion, not elsewhere classified; E87.2 Acidosis; I16.9 Hypertensive crisis, unspecified; E87.5 Hyperkalemia; E87.70 Fluid overload, unspecified; E11.22 Type 2 diabetes mellitus with diabetic chronic kidney disease; E11.21 Type 2 diabetes mellitus with diabetic nephropathy; E11.51 Type 2 diabetes mellitus with diabetic peripheral angiopathy without gangrene; K21.9 Gastro-esophageal reflux disease without esophagitis; I25.10 Atherosclerotic heart disease of native coronary artery without angina pectoris; E78.5 Hyperlipidemia, unspecified; D64.9 Anemia, unspecified; Z99.2 Dependence on renal dialysis; Z87.891 Personal history of nicotine dependence; Z95.5 Presence of coronary angioplasty implant and graft; Z91.19 Patient's noncompliance with other medical treatment and regimen; Z83.3 Family history of diabetes mellitus; Z90.49 Acquired absence of other specified parts of digestive tract; Z91.15 Patient's noncompliance with renal dialysis
CPT/HCPCS: 36415; 36600; 71045; 80048; 80053; 80074; 82435; 82550; 82803; 82947; 82948; 83605; 83874; 83880; 84100; 84132; 84295; 84484; 85018; 85025; 85027; 85610; 85730; 87040; 87804; 90935; 93005; 93306; 94640; 94664; 99291; G0378; J1644; J1940; J3490

== ENCOUNTER → 2019-12-17 | Outpatient (CLI) | payer MEDICARE ==
[~2019-12-17] MED LIST changes: +ATOR40TA69 PO; +BENZ-39 PO; -CALC667C10 PO; +CARV12.511 PO; +CETI10TA57 PO; +CHOL100018 PO; -CHOL100040 PO
[2019-12-17 08:47] LABS: INR 1.11 (0.85-1.15); PARTIAL THROMBOPLASTIN TIME 28.5 SEC (26.3-35.5); PROTHROMBIN TIME 11.6 SEC (9.6-11.6)
--- NOTE | 2019-12-17 09:00 | NUR ---
U/S GD LEFT THORACENTESIS PROCEDURE PERFORMED BY DR. GAMA. PUNCTURE SITE LEFT POSTERIOR BACK AND PATIENT TOLERATED PROCEDURE WELL. TOTAL REMOVED 750 MILLILITERS OF CLOUDY BLOOD TINGED FLUID. END OF PROCEDURE AT 0915. CATHETER REMOVED AND DRESSING APPLIED. NO BLEEDING NOTED. POST CHEST X-RAY TAKEN AND READ BY DR. GAMA. NO PNEUMOTHORAX SEEN. DISCHARGE INSTRUCTIONS GIVEN TO PATIENT AND VERBALIZED UNDERSTANDING. DISCHARGED AMBULATORY, AT 0955. PT STABLE, AAO X3 WITH NO C/O PAIN.
[2019-12-17 16:44] LABS: APPEARANCE BODY FLUID CLOUDY (CLEAR); COLOR,BODY FLUID AMBER (LT YELLOW); SPECIMENTYPE,BODY FLUID PLEURAL
[2019-12-17 16:45] LABS: BODY FLUID RBC 3825 /cu. mm.; BODY FLUID WBC 161 /cu. mm.; TOTAL VOLUME,BODY FLUID 750 mL
[2019-12-17 17:09] LABS: BF EOSINOPHIL 6 %; BF LYMPHOCYTE 81 %; BF MESOTHELIAL 5 %; BF MONOCYTE 3 %
== END | disposition home or self-care (01) ==
LOC: RAH 07:17
PROVIDERS: ATTEND Internal Medicine Cardiovascular Disease
DX: J90 Pleural effusion, not elsewhere classified (principal); E78.5 Hyperlipidemia, unspecified; K21.9 Gastro-esophageal reflux disease without esophagitis; M19.90 Unspecified osteoarthritis, unspecified site; I12.0 Hypertensive chronic kidney disease with stage 5 chronic kidney disease or end stage renal disease; E11.22 Type 2 diabetes mellitus with diabetic chronic kidney disease; N18.6 End stage renal disease; I25.10 Atherosclerotic heart disease of native coronary artery without angina pectoris; Z88.5 Allergy status to narcotic agent; Z79.899 Other long term (current) drug therapy; Z79.01 Long term (current) use of anticoagulants; Z99.2 Dependence on renal dialysis; Z87.891 Personal history of nicotine dependence; Z82.49 Family history of ischemic heart disease and other diseases of the circulatory system; Z83.3 Family history of diabetes mellitus; Z82.3 Family history of stroke
CPT/HCPCS: 32555; 36415; 71045; 85610; 85730; 87071; 87205; 88108; 88305; 89051

== ENCOUNTER → 2020-02-13 | Outpatient (CLI) | payer MEDICARE ==
[2020-02-13 10:15] LABS: INR 1.02 (0.85-1.15)
--- NOTE | 2020-02-13 10:25 | NUR ---
U/S GUIDED LEFT THORACENTESIS PROCEDURE PERFORMED BY DR. ABURTO. PUNCTURE SITE LEFT POSTERIOR LATERAL BACK AND PATIENT TOLERATED PROCEDURE WELL. TOTAL REMOVED 1.2 LITERS OF CLOUDY PINK TINGED PLEURAL FLUID. END OF PROCEDURE AT 1040. CATHETER REMOVED AND DRESSING APPLIED. NO BLEEDING NOTED. POST CHEST X-RAY DONE AND READ BY DR. ABURTO, STIFF LUNG NOTED. PT INSTRUCTED TO RETURN TO [facility] [place] [facility] FOR A REPEAT CXR 1 VIEW, OR IF PATIENT NOTED TO HAVE DIFFICULTY BREATHING, SOB, CYANOTIC, CONFUSED TO RETURN TO THE ED. PT/FAMILY MEMBER GIVEN DC INSTRUCTIONS. PT/FAMILY VERBALIZED UNDERSTANDING. PT DISCHARGED, VERBALIZED UNDERSTANDING OF INSTRUCTIONS TO RETURN AT [id number] FOR REPEAT CXR. PT STABLE, AAO X3 WITH NO C/O PAIN @ 1105.
--- NOTE | 2020-02-13 14:03 | NUR ---
FOLLOW UP CXR S/P LEFT THORACENTESIS STIFF LUNG PT HAD CXR DONE. DR. ABURTO READ CXR AND NOTED, "CXR UNCHANGED FROM PREVIOUS CXR." DR. ABURTO SPOKE TO PATIENT AND INFORMED HER, "CXR IS UNCHANGED FROM PREVIOUS CXR EXAM. PT MAY GO HOME, AND SHE IS NOT TO HAVE THIS DONE EVER AGAIN."
== END | disposition home or self-care (01) ==
LOC: RAH 08:56
PROVIDERS: ATTEND Internal Medicine
DX: J90 Pleural effusion, not elsewhere classified (principal); I10 Essential (primary) hypertension; E78.5 Hyperlipidemia, unspecified; Z99.2 Dependence on renal dialysis
CPT/HCPCS: 32555; 36415; 71045; 71046; 85610; A4215